=== PATIENT | female | born 1995 | race African-American/Black ===

== ENCOUNTER 2021-10-06 13:00 | Emergency (ER) | payer OTHER ==
--- OUTSIDE RECORDS SUMMARY | 2021-10-06 13:04 | XMS REPORT | Continuity of Care Document ---
:1995 Author Organization [facility] t Address [facility] [place] [id number] Care Team Providers Name Role Phone Unavailable Unavailable Unavailable Payers Payer Name Policy Type Policy Number Effective Date Expiration Date Elma lester [facility] [id number] 2016 00:00:00 [employer] Problems This patient has no known problems. Allergies, Adverse Reactions, Alerts This patient has no known allergies or adverse reactions. Medications This patient has no known medications. Procedures This patient has no known procedures. Encounters Start End Encounter Admission Attending Care Care Encounter Source Date/Time Date/Time Type Type Clinicians Facility Department ID 2021-09-02 Outpatient [facility] [id number] [place] 23:18:36 [id number] Health Results This patient has no known results.
--- NOTE | 2021-10-06 14:41 | ER ---
Nurse's Notes [facility] Name: Ronda Vu Age: 26 yrs Sex: Female : 1995 Arrival Date: 10/06/2021 Time: 13:02 Bed 11 Private MD: Diagnosis: Diarrhea, unspecified Presentation: 10/06 13:05 Chief complaint: Patient states: I think my blood sugar is low. Yesterday EMS came to ld1 my house and they said it was low, BG level of 83. Pt reports feeling lightheaded and shaky today. Coronavirus screen: At this time, the client does not indicate any symptoms associated with coronavirus-19. Ebola Screen: No symptoms or risks identified at this time. Initial Sepsis Screen: Does the patient meet any 2 criteria? No. Patient's initial sepsis screen is negative. Does the patient have a suspected source of infection? No. Patient's initial sepsis screen is negative. Risk Assessment: Do you want to hurt yourself or someone else? Patient reports no desire to harm self or others. Onset of symptoms was October 06, 2021. 13:05 Method Of Arrival: Ambulatory ld1 13:05 Acuity: PERLITA 4 ld1 Triage Assessment: 13:06 General: Appears in no apparent distress. comfortable, Behavior is calm, cooperative, ld1 appropriate for age. Pain: Denies pain. Neuro: Level of Consciousness is awake, alert, obeys commands, Oriented to person, place, time, situation. Respiratory: Airway is patent Respiratory effort is even, unlabored. Musculoskeletal: No signs and/or symptoms reported regarding the musculoskeletal system. 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 - Social history:: Smoking status: Patient denies any tobacco usage or history of. Patient/guardian denies using alcohol, Patient/guardian denies using street drugs, The patient lives with family. - Family history:: not pertinent. Screenin:53 Abuse screen: Denies threats or abuse. Nutritional screening: No deficits noted. ll1 Tuberculosis screening: No symptoms or risk factors identified. Fall Risk Total Haywood Fall Scale indicates No Risk (0-24 pts). Assessment: 13:25 Reassessment: No changes from previously documented assessment. Patient and/or family ll1 updated on plan of care and expected duration. Pain level reassessed. Patient is alert, oriented x 3, equal unlabored respirations, skin warm/dry/pink. Patient states feeling better. 14:25 Reassessment: No changes from previously documented assessment. Patient and/or family ll1 updated on plan of care and expected duration. Pain level reassessed. Patient is alert, oriented x 3, equal unlabored respirations, skin warm/dry/pink. 14:53 Reassessment: No changes from previously documented assessment. Patient and/or family ll1 updated on plan of care and expected duration. Pain level reassessed. Patient is alert, oriented x 3, equal unlabored respirations, skin warm/dry/pink. Vital Signs: 13:05 BP 115 / 75; Pulse 119; Resp 18; Temp 98.3(TE); Pulse Ox 100% on R/A; Weight 81.65 kg; ld1 Height 5 ft. 4 in. (162.56 cm); Pain 0/10; 13:23 BP 109 / 73; Pulse 110; Resp 17; ll1 14:52 BP 113 / 73; Pulse 101; Resp 16; Pulse Ox 100% ; Pain 0/10; ll1 13:05 Body Mass Index 30.90 (81.65 kg, 162.56 cm) ld1 13:23 fingerstick 100 ll1 ED Course: 13:02 Patient arrived in ED. rg4 13:06 Triage completed. ld1 13:06 Arm band placed on right wrist. ld1 13:08 Tadeo Camejo, MABEL is Primary Nurse. ll1 13:08 Patient placed in an exam room, on a stretcher. ll1 13:15 Indu Beck MD is Attending Physician. ma2 14:53 Patient has correct armband on for positive identification. Call light in reach. Side ll1 rails up X 1. Cardiac monitoring not applicable on this patient. 14:53 No provider procedures requiring assistance completed. Patient did not have IV access ll1 during this emergency room visit. Administered Medications: No medications were administered Outcome: 14:41 Discharge ordered by . evelyn 14:51 Patient left the ED. 1 14:53 Discharged to home ambulatory. ll1 14:53 Condition: stable 14:53 Discharge instructions given to patient, Instructed on discharge instructions, follow up and referral plans. Demonstrated understanding of instructions, follow-up care. Signatures: Dana Caballero rg4 Indu Beck MD MD ma2 Tadeo Camejo RN RN ll1 Joy Mclean RN RN 1
--- NOTE | 2021-10-06 14:42 | EDPHYS ---
Physician Documentation [facility] Name: Ronda Vu Age: 26 yrs Sex: Female : 1995 Arrival Date: 10/06/2021 Time: 13:02 Bed 11 Private MD: ED Physician Indu Beck HPI: 10/06 14:39 This 26 yrs old Black Female presents to ER via Ambulatory with complaints of Low Blood ma2 Sugar. 14:39 6-year-old primigravida at 30 weeks , presents because she would like her blood ma2 sugar to be checked, patient said that she has been having lightheadedness and diarrhea for 2 days, no vomiting, no abdominal pain or headac She stated her blood was 83 at home and so she thought that this is low and would like her blood sugar to be checked. Mumox-lf-lgad glucose in our ER is 100, I explained to patient that her blood sugar is normal, vital signs within normal limits heart rate is normal for , patient does not have any symptom at this time and would like to be discharged. I encouraged patient to drink plenty of water as she might be likely dehydrated given she has been having diarrhea for 2 days.. 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 - Social history:: Smoking status: Patient denies any tobacco usage or history of. Patient/guardian denies using alcohol, Patient/guardian denies using street drugs, The patient lives with family. - Family history:: not pertinent. ROS: 14:39 Constitutional: Negative for fever, chills, and weight loss. ma2 14:39 All other systems are negative. Exam: 14:39 Constitutional: This is a well developed, well nourished patient who is awake, alert, ma2 and in no acute distress. Head/Face: Normocephalic, atraumatic. Eyes: Pupils equal round and reactive to light, extra-ocular motions intact. Lids and lashes normal. Conjunctiva and sclera are non-icteric and not injected. Cornea within normal limits. Periorbital areas with no swelling, redness, or edema. ENT: Nares patent. No nasal discharge, no septal abnormalities noted. Tympanic membranes are normal and external auditory canals are clear. Oropharynx with no redness, swelling, or masses, exudates, or evidence of obstruction, uvula midline. Mucous membranes moist. Neck: Trachea midline, no thyromegaly or masses palpated, and no cervical lymphadenopathy. Supple, full range of motion without nuchal rigidity, or vertebral point tenderness. No Meningismus. Chest/axilla: Normal chest wall appearance and motion. Nontender with no deformity. No lesions are appreciated. Cardiovascular: Regular rate and rhythm with a normal S1 and S2. No gallops, murmurs, or rubs. Normal PMI, no JVD. No pulse deficits. Respiratory: Lungs have equal breath sounds bilaterally, clear to auscultation and percussion. No rales, rhonchi or wheezes noted. No increased work of breathing, no retractions or nasal flaring. Abdomen/GI: Soft, non-tender, with normal bowel sounds. No distension or tympany. No guarding or rebound. No evidence of tenderness throughout. Back: No spinal tenderness. No costovertebral tenderness. Full range of motion. Skin: Warm, dry with normal turgor. Normal color with no rashes, no lesions, and no evidence of cellulitis. MS/ Extremity: Pulses equal, no cyanosis. Neurovascular intact. Full, normal range of motion. Neuro: Awake and alert, GCS 15, oriented to person, place, time, and situation. Cranial nerves II-XII grossly intact. Motor strength 5/5 in all extremities. Sensory grossly intact. Cerebellar exam normal. Normal gait. Vital Signs: 13:05 BP 115 / 75; Pulse 119; Resp 18; Temp 98.3(TE); Pulse Ox 100% on R/A; Weight 81.65 kg; ld1 Height 5 ft. 4 in. (162.56 cm); Pain 0/10; 13:23 BP 109 / 73; Pulse 110; Resp 17; ll1 14:52 BP 113 / 73; Pulse 101; Resp 16; Pulse Ox 100% ; Pain 0/10; ll1 13:05 Body Mass Index 30.90 (81.65 kg, 162.56 cm) ld1 13:23 fingerstick 100 ll1 MDM: 14:39 Differential diagnosis: hyperglycemia, hypoglycemic episode, new onset diabetes, 4 ma2 versus dehydration, versus gastroenteritis. Data reviewed: vital signs, nurses notes. Counseling: I had a detailed discussion with the patient and/or guardian regarding: the historical points, exam findings, and any diagnostic results supporting the discharge/admit diagnosis, the presence of at least one elevated blood pressure reading (>120/80) during this emergency department visit, the need for outpatient follow up. Response to treatment: the patient's symptoms have markedly improved after treatment. 14:41 Patient medically screened. ma2 10/06 13:44 Order name: Glucose, Ancillary Testing EDMS Administered Medications: No medications were administered Disposition Summary: 10/06/21 14:41 Discharge Ordered Location: Home ma2 Condition: Stable ma2 Diagnosis - Diarrhea, unspecified ma2 Followup: ma2 - With: Private Physician - When: Tomorrow - Reason: If symptoms return, Recheck today's complaints Discharge Instructions: - Discharge Summary Sheet ma2 - Diarrhea, Adult ma2 Forms: - Medication Reconciliation Form ma2 - Thank You Letter ma2 - Antibiotic Education ma2 - Prescription Opioid Use ma2 - Family Work Release ll1 Signatures: Dispatcher [employer] EDMS Indu Beck MD MD ma2 Joy Mclean RN RN ld1
[2021-10-06 15:26] VITALS: TEMP 98.3; O2SAT 100
[2021-10-06 15:27] VITALS: BP 109/73
== END 2021-10-06 14:51 | disposition home or self-care (01) ==
LOC: ER 13:00
DX: O99.613 Diseases of the digestive system complicating pregnancy, third trimester (principal); R19.7 Diarrhea, unspecified; Z3A.30 30 weeks gestation of pregnancy
CPT/HCPCS: 82947; 99281